=== PATIENT | male | born 2000 | race Asian ===

== ENCOUNTER 2022-12-11 00:30 | Emergency (ER) | payer OTHER ==
[~2022-12-11] VITALS: Ht 177.8 cm; Wt 74.1 kg
[2022-12-11 00:40] VITALS: BP 127/72; O2SAT 99
[2022-12-11 04:40] VITALS: PULSE 54; RESP 16; TEMP 98
== END 2022-12-11 04:40 | disposition home or self-care (01) ==
LOC: ER 00:55
DX: R07.89 Other chest pain (principal)
CPT/HCPCS: 71045; 93005; 99283